=== PATIENT | male | born 1990 | race Caucasian/White ===

== ENCOUNTER 2017-05-24 10:40 | Inpatient (IN) | payer OTHER ==
[2017-05-24 11:03] LABS: PLATELET COUNT 238 10^3/uL (150-400)
--- NOTE | 2017-05-24 11:03 | EDPHY ---
H & P Smoking Status: Never smoked Time Seen by Provider: 05/24/17 10:46 HPI/ROS: CHIEF COMPLAINT: M1 hold HISTORY OF PRESENT ILLNESS: 26-year-old male presents to the emergency department with the [place] [employer] on M1 hold. The patient has a history of OCD and severe insomnia and has been off of his medications for over 1 year. He states that they were not helpful and so he stopped them. He apparently left a note for his parents, whom he lives with, stating that he was going to end his life. His mother called [place] [employer] and he was found on the hill getting some food. He states that he no longer feels suicidal or homicidal. He does not know why he left a note. He states that he wrote a note months ago. He received a drug from a friend of a friend on line and had this drug in his possession. He was told that if he took the medication , it would end his life. He does not know what the drug was. He does not have a substance abuse history. He denies auditory visual hallucinations. He denies homicidal ideation. Again he does not currently feel suicidal. He has never been hospitalized for mental illness. REVIEW OF SYSTEMS: Constitutional: No fever, no chills. Eyes: No double or blurry vision. ENT: No sore throat. Respiratory: No cough, no shortness of breath. Cardiac: No chest pain. Gastrointestinal: No abdominal pain, vomiting or diarrhea. Genitourinary: No dysuria. Musculoskeletal: No neck or back pain. Skin: No rashes. Neurological: No headache. (Sarahi Najera) Past Medical/Surgical History: OCD, insomnia (Sarahi Najera) Social History: Graduate from [employer] in 2013 with a degree in Sociology. Currently unemployed living with his parents in [place] (Sarahi Najera) Physical Exam: General Appearance: Alert, no distress. Eyes: Pupils equal and round. Extraocular motions are all intact. ENT: Mouth: Mucous membranes moist. Respiratory: No wheezing, rhonchi, or rales, lungs are clear to auscultation. Cardiovascular: Regular rate and rhythm. Gastrointestinal: Abdomen is soft and nontender, no masses, no rebound or guarding, bowel sounds normal. Neurological: Alert and oriented x 3, cranial nerves II through XII grossly intact Skin: Warm and dry, no rashes. Musculoskeletal: Nontender to palpate along the cervical, thoracic or lumbar spine. Neck is supple. Extremities: Full range of motion and no peripheral edema. Psychiatric: Patient is oriented X 3, there is no agitation. (Sarahi Najera) Constitutional: Initial Vital Signs Temperature (C) 36.6 C 05/24/17 10:54 Heart Rate 136 H 05/24/17 10:54 Respiratory Rate 18 05/24/17 10:54 Blood Pressure 135/94 H 05/24/17 10:54 O2 Sat (%) 94 05/24/17 10:54 O2 Delivery Mode Room Air Allergies/Adverse Reactions: No Known Allergies Allergy (Unverified 07/09/09 15:54) Home Medications: Medication Instructions Recorded Cholecalciferol Vit D3 [Vitamin D3 1,000 units PO DAILY 05/24/17 (*)] Multivitamins [Multivitamin (*)] 1 each PO DAILY 05/24/17 Medical Decision Making ED Course/Re-evaluation: The police found the medication that the patient had which was phenobarbital. He did not take any this medication. They are not opened. The patient has been medically cleared and was evaluated by mental health. He was kept on M1 hold and was admitted to behavioral health unit. (Sarahi Najera ) I did not see this patient while he was in the emergency department. However his care was discussed with the PA while the patient was in the department. I agree with treatment plan and management (Neel Waldron) Differential Diagnosis: Depression including functional and major depression, situational depression, medication side effect, drugs and alcohol abuse. (Sarahi Najera) - Data Points Laboratory Results: Laboratory Results 05/24/17 10:45 05/24/17 10:45 Departure - Departure Disposition: [facility] IP Clinical Impression: Suicidal ideation Condition: Fair
[2017-05-24] MEDS ORDERED: MAGNESIUM HYDROXIDE 30 ML UDCUP PO PRN (20:34)
[2017-05-24] MEDS ORDERED: ACETAMINOPHEN 325 MG TAB PO PRN (20:34)
[2017-05-24] MEDS ORDERED: LORazepam 0.5 MG TAB PO PRN (20:34)
[2017-05-24] MEDS ORDERED: NICOTINE POLACRILEX 2 MG GUM B PRN (20:34)
[2017-05-24] MEDS ORDERED: MAG HYDROX/AL HYDROX/SIMETH 30 ML UDCUP PO PRN (20:34)
[2017-05-25] MEDS ORDERED: OLANZapine DISINTEGR 5 MG TAB PO PRN (01:50)
--- NOTE | 2017-05-25 09:20 | GHP ---
[f rep st] HISTORY AND PHYSICAL DATE OF ADMISSION: 05/25/2017 CHIEF COMPLAINT: Suicidal ideation. HISTORY OF PRESENT ILLNESS: A 26-year-old male with a history of major depression, OCD, and severe i nsomnia who has been off his medications for over a year. Patient left a note for his parents, whom he lives with, stating he intended to end his life. Parents called [employer] for evaluation. U pérez my interview and Behavioral Health, patient is denying any vision changes, headaches, dysphagia, rhinorrhea, palpitations, chest pain, shortness of breath, cough, abdominal discomfort, nausea, vomit ing, changes in his bowel habits, dysuria, hematuria, arthralgias, myalgias, lower extremity edema, o r rashes. Patient reports he is tolerating p.o. intake without complication. Denies any recent weig ht loss or weight gain. PAST MEDICAL HISTORY: 1. OCD. 2. Severe insomnia. 3. Depression. SOCIAL HISTORY: Negative for tobacco, illicit drugs, or marijuana. FAMILY HISTORY: Positive for asthma in his father. REVIEW OF SYSTEMS: 10-point review of systems is negative with the exception of that reported in the HPI. PHYSICAL EXAMINATION: VITAL SIGNS: Blood pressure 110/55, heart rate 105, respiratory rate 14, 95% on room air, 36.2. GENERAL: This is a pleasant-appearing young male in no acute distress. HEENT: Notable for moist mucous membranes. EYES: Negative for any icterus. CARDIAC: Patient is regular r ate and rhythm. PULMONARY: Clear to auscultation bilaterally. GASTROINTESTINAL: Positive bowel so unds. ABDOMEN: Soft and nontender. MUSCULOSKELETAL: Negative for any lower extremity edema. SKIN : Negative for any rashes. NEUROLOGIC: He is alert and oriented x3. PSYCHIATRIC: He has a flat a ffect. Appears depressed on my examination. DATA: White count 7.4, hematocrit 51.8, platelet count of 238. Sodium 143, creatinine 0.8, blood gl ucose 127. Urine toxicology is negative. TSH is 3.07. ASSESSMENT AND PLAN: This is a 26-year-old male presenting with suicidal ideation, severe insomnia, and obsessive-compulsive disorder. 1. Mild dehydration. Patient does seem concentrated on his labs. Discussed importance of good flui d intake during his acute stay at [facility]. No need to repeat labs. Simply encouraged hafsa ent for adequate oral nourishment and hydration. 2. Acute suicidal ideation. We will leave the management to the primary psychiatric team. 3. Tachycardia. On exam, it sounds sinus. Suspect this is likely more related to his psychiatric p resentation as it seems to be fluctuating overnight. Again, have encouraged him to take good fluid i ntake and can follow his vital signs going forward. 4. Prophylaxis. Patient is ambulating. DISPOSITION: Will be dependent on the patient's psychiatric team. I have discussed the case with the upholstery auto trimmer. Will encourage good oral intake and monitor the p atient's vitals going forward. /[id number]/MODL
--- NOTE | 2017-05-25 23:32 | SOAPPROG ---
SOAP Progress Note Assessment/Plan: Late entry for 05/24/170: Assessment: 26yo CM with hx of OCD and depression admitted with SI and plan to ingest a pill he purchased online thinking it would end his life. Left note for parents who called 911. Med cleared in ER, and admitted in evening of 05/24 to 3[facility] on M-1 for further eval , stabilization and safety. Reviewed paperwork and case briefly with [facility] and d/ w staff. On brief interview, pt calm, cooperative, good eye contact, nml vol speech, decr prosidy, somewhat blunted affect, mood "okay now", denied feeling suicidal. Stated he could maintain safety on unit. Complains primarily of years of insomnia. Regardless, does not want any medication, even prn. Hx of SSRIs and psychiatric treatment for years, but has been out of treatment. Denied any AH/VH, no thoughts to harm others. Expresses wanting help for insomnia but rejecting any offered options. Does not feel he needs to be in hospital. Informed he would be provided with prn medications and fully interviewed in AM. Plan: cont M-1 safety precautions, SP-1 PRN Lorazepam and low dose Zyprexa available for anxiety/sleep/thoughts psych admission interview in AM with dictation to follow Objective: Vital Signs Temp Pulse Resp BP Pulse Ox 36.3 C 73 14 110/55 L 96 05/25/17 06:00 05/25/17 06:00 05/25/17 06:00 05/25/17 06:00 05/25/17 06:00 - Time Spent With Patient Time Spent With Patient: 15min - Pending Discharge Pending Discharge Within 24 Hours: No Pending Discharge Within 48 Hours: No ICD10 Worksheet Patient Problems: Problems Problem Status Onset Major depressive disorder, recurrent episode with mixed features Acute Obsessive compulsive disorder Acute Suicidal ideation Acute
[2017-05-26] MEDS: MULTIVITAMINS 1 EACH TAB PO SCH (14:10)
[2017-05-26] MEDS: CHOLECALCIFEROL VIT D3 1,000 UNITS TAB PO SCH (14:10)
--- NOTE | 2017-05-26 14:59 | SOAPPROG ---
SOAP Progress Note Assessment/Plan: Assessment: Major Depressive Disorder, Recurrent severe without psychotic features Obsessive Compulsive Disorder R/O MDD with psychotic feature R/O MDD with mixed/bipolar features Patient has a prior history of OCD and MDD; now on inpatient after writing suicide note and ordering phenobarbitol on-line. Patient has odd affect incongruent with report of severe emotional distress. Patient reports severe insomnia not observed overnight on unit but reported by father; patient may have mood instability. Patient reports no benefit from 3 prior SSRI trials. Plan: Short Term Certification, patient doesn't agree to voluntary treatment Start Zoloft 25mg PO QHS. [facility] handout on Zoloft reviewed. Start Seroquel 25mg PO QHS. BRENNON handout reviewed. Discussed risk of metabolic syndrome and tardive dyskinesia. Check Lipids, HgbA1c, LFTs Patient signed CLARI for parents. Reviewed plan on phone with father. Monitor mood, sleep, risk of self-harm SP1 05/26/17 15:12 Subjective: CC: "I feel better" Patient is a poor historian but reports not taking psychiatric medications for one year. Reports past diagnoses OCD and depression. Reports intrusive thoughts of graphic violence and counting starting around age 18 or 19. Reports no benefit from past trials of Citalopram, Luvox, Prozac in the past. Reports in past months having severe insomnia with disrupted sleep. Reports sometimes feeling well and stable. Sometimes feeling anxious, depressed, hopeless, and having thoughts of suicide. Reports he wrote a suicide note but then left the house and later felt better. Reports months ago overdosing medication and ordered phenobarbitol. Reports no AH or paranoia. Denies feeling agitation or severely irritable. Endorses anxiety and inability to work or function in the community. Reports feeling 'constant emotional anguish. ' Objective: Vital Signs Temp Pulse Resp BP Pulse Ox 36.3 C 88 14 96/55 L 95 05/25/17 06:00 05/26/17 06:00 05/26/17 06:00 05/26/17 06:00 05/26/17 06:00 Alert WM. Speech RRR. Mood 'a little better.' Affect odd, preoccupied, distracted. Thoughts briefly organized. Illogical at times. Denies SI or HI or AH or paranoia. Endorses intrusive thoughts. Memory limited. Possible somatic preoccupation and intrusive thoughts. Insight limited. Staff report patient slept 8 hours. Father reports have erratic sleeping patterns. Some nights only sleeping a few hours. Patient has been isolative, quiet, reporting intrusive thoughts. Father reports patient is distracted and preoccupied. Father reports 'he is in total mental anguish and he is a prisoner.' - Time Spent With Patient Time Spent With Patient: 45 minutes - Pending Discharge Pending Discharge Within 24 Hours: No Pending Discharge Within 48 Hours: No ICD10 Worksheet Patient Problems: Problems Problem Status Onset Obsessive compulsive disorder Acute Major depressive disorder, recurrent episode with mixed features Acute Suicidal ideation Acute
--- NOTE | 2017-05-26 15:01 | BAPA ---
[f rep st] ADMISSION PSYCHIATRIC ASSESSMENT DATE OF SERVICE: 05/25/2017 CHIEF COMPLAINT: As per [facility] records on ER evaluation, "I left a note for my parents saying I intended to end my life and then left the house; they called the police." [place] was [place] at , [address] [place] [address]. On evaluation, patient reports his understanding for reason for admission is "yesterday morning, I left a note for my parents indicating I was going to end my life and had the means to do so...I left in the morning with the expectation to wander around and see how the day goes..." States he had been struggling with SI "due to my ongoing chronically dire health situation and mood fluctuations daily". HISTORY OF PRESENT ILLNESS: The patient is a 26-year-old single male brought in by police on an M1 hold placed 05/24/2017 at 9:25 a.m. for suicidal ideation. He was brought to the [facility] ED for evaluation. Police had received a call from patient's father after father found a note in the morning of admission , stating his son had left, and note clearly stated his intention was to end his life. The patient has a history of severe insomnia and mental health illness since age 19 upon starting college. He reported developing insomnia, anxiety, intrusive thoughts, and was eventually diagnosed with obsessive- compulsive disorder. He tolerated living at in a dormitory for 1 semester, then returned to live at home, where he has lived since that time. He was able to graduate from , but he has never had any employment. Patient reports a history of feeling normal, no mental health issues until his senior year in high school, when he developed depression and anxiety, passing out during graduation when he was supposed to give a speech. Thereafter, he struggled with much anxiety, stating he had "stupid worries" and difficulty in social situations. He does describe his mental health difficulties as sudden onset and having dramatically changed the course in his life, but described himself as "still operational," able to function in school and complete his studies. He divides his mental health history as "[place] years" and "post- college years", having received very regular therapy and medications (SSRIs) during his time in college. He states 1 month into his freshman year of college , he started experiencing intrusive ego-dystonic thoughts, did seek therapy and attend regularly and had medications prescribed by a nurse practitioner. Medications included a trial of Prozac, as well as Celexa. Later, "post college" years included seeking psychiatric treatment from Dr. Moises Leal and psychologist, Caryn Sesay, stating he was diagnosed with OCD and major depressive disorder. Feels prior to this he was probably just diagnosed with generalized anxiety. At this time, he received Luvox, "maximum dose," with no effect. Throughout this whole time, he reports chronic insomnia , having tried a variety of medications for just 1 day with no effect. He reports even being referred to a sleep clinic, but no workup was done because they told him he did not meet criteria for sleep apnea. Patient additionally describes having "physical dysfunction" concurrent with his OCD/anxiety symptoms, which he "never told anyone about." This includes a "burning sensation on my back, like a sunburn" whenever he reclines to rest or try to sleep, and this also interferes with sleep. He also describes numbness and tingling in his hands and feet, which are also chronic. Additionally has self-diagnosed himself with "Peyronie's Disease". Although, he states he has not really discussed these physical symptoms with anyone previously, he did allude to such symptoms being generally attributed to his anxiety, whether that was by a clinician suggestion or based on his own research is unclear. Patient does state he has researched his symptoms and disorder and diagnosis, as well as medication options extensively over the years. Regarding insomnia, states when trying to sleep, not only does he experience the burning sensation on his back, but he describes "random bouncing thoughts like a pinball, nonsensical, irrational," which are intrusive and frustrating, interfering with his attempt to sleep. He does express insight into having a mental illness and frequently states he has "learned better how to deal with my thoughts," so tends to be more accepting of them; however, he admits he is no longer engaged in any outpatient treatment or therapy. Describes his condition as dealing with "years of agony," with suicidal ideation not only being a part of his initial ego-dystonic intrusive thoughts, and "part of the vortex," but increasingly, his suicidal ideation is "cumulative", admitting that several months ago he researched methods of killing himself, particularly searching for a medication he could take which would allow him to . Apparently, he located someone anonymously online who agreed to provide a medication for him. He purchased this and has kept this as an option for several months. He is unable to state why in particular he decided to leave the suicide note now with plan to take the pill. He was vague, stating he just was not sure and was going to "see how the day went." The patient reports the pill was confiscated by police and identified as phenobarbital. The patient did believe that taking this 1 pill was going to end his life. Patient does talk of his years of intrusive thoughts, which are distracting to him and quite distressing. He states since age 19, "I've never felt normal, not even a brief reprieve." He expresses symptoms of depression, feeling hopeless, helpless, worthless, chronic suicidal ideation, increasing "as the years go on," not only as "part of the vortex," but now more considered as a true option. Mood is depressed. Appetite is fair, although he admits eating less well recently. He also experiences anhedonia and is isolated, with little social connection anywhere. Regarding any history of manic symptoms, he states he experienced "euphoria for 10 minutes" after taking 1 Celexa pill during a time he was not prescribed this, but still had it from an old prescription. He does describe his mood "fluctuating," stating he feels "fine on the surface temporarily," but then predominantly depressed and otherwise "never good." He reports predominantly staying in a very depressed state. Racing thoughts do occur at night, otherwise feels thoughts are "numb during the day, my brain feels fried, like it's been on a stove." He adds, "I have to deny the reality of my situation" because if he thinks about this, he feels even more despondent. The patient denied any history of panic attacks or otherwise feeling generally anxious, except as described earlier during onset of symptoms many years ago. Patient admits that Dr. Leal did give mention to him other options to consider, perhaps likely in conjunction with Luvox, including "Zyprexa and Seroquel, but he told me to research it, which I did, and I don't want to take any of those medications." He feels that, based on his research, side effects would outweigh any potential benefits but is not able to further rationalize this as he describes not being able to feel any worse. ER evaluation and hospitalist assessment on admission to [address] [place] [address] notes no significant lab abnormalities, with TSH 3.07. Urine toxicology negative, noted to be mildly dehydrated, and good oral fluid intake was recommended, as well as adequate oral nourishment. Also noted to have mild tachycardia, to be followed while hospitalized, suspected due to his psychiatric presentation. PAST PSYCHIATRIC HISTORY: No previous inpatient psychiatric treatment. Patient 's medications have been as noted above, including trials of Celexa, Prozac, and Lexapro. Otherwise, has never had any other psychiatric medication trials for mood stabilization or antipsychotics. He does report trying once a Valium for sleep, and Ambien for sleep another time, [id number] medications, but has found nothing effective for his insomnia. No current therapist or psychiatrist in the community. Has reportedly engaged with therapy at [facility] during college years with nurse practitioner prescribing medication and about 6 months of post-college psychiatric treatment with therapist and psychiatrist as noted above. Also, per records, the patient denied any history of physical, emotional, or sexual abuse. SUBSTANCE USE HISTORY: Patient denies any substance use history, although has occasionally drank some alcohol long ago. No marijuana use or illicit substance use. PAST MEDICAL HISTORY: Unremarkable. Describes burning sensation on his back when reclines, also numbness/tingling in hands and feet. States he has seen a neurologist in the past with a negative MRI. No further details. He denied any past surgeries, nor any history of traumatic brain injury or other head trauma. CURRENT MEDICATIONS: None. ALLERGIES: No known drug allergies. FAMILY PSYCHIATRIC HISTORY: Patient denied substance use or mental illness in any family members. On [facility] evaluation, wine cellar worker spoke with Father and indicated Father deemed depressed, remains at home and spends all of his free time with his son (the patient). Medically, Father suffers from asthma and uses an inhaler. SOCIAL HISTORY: No notable significant developmental issues during childhood, reportedly normal childhood, did well in school, had friends until high school when patient became more isolated and withdrawn. He did graduate from high school, attended , living on campus only for 1 semester, and has been living at home ever since. He graduated with a major in sociology, but has never had any career or employment in this field. He apparently has never been employed. He currently lives with his parents in [place]. He is an only child. [facility] report described family is very "close-knit." Also, concerns that the family was "enmeshed." The patient is single. No children. Reported heterosexual, no close friends at this time. No legal issues, no identified lutheran or spiritual beliefs. Per [facility] report, patient in leisure time uses computer and watches TV "but does not really derive any pleasure from anything." Apparently , [facility] did interview mother and father of patient, and father was reportedly quite tearful and hopeless throughout interview with [facility] and felt unable to visit with the patient, but mother did visit with patient. MENTAL STATUS EXAM: On admission, patient was casually dressed, neatly kempt, with calm demeanor, normal psychomotor activity, good eye contact, normal speech rate and volume, although with some mild restriction in prosody. Mood was described as depressed but does not feel he is as bad as when he was admitted, maintaining he has been dealing with this all of his life and would really just like to focus on returning home. Affect was quite flat and restricted. Patient admitted to having random, intrusive, nonsensical and irrational thoughts, most prominent at night before sleep but denies any associated compulsive behaviors. He did perseverate on this being his baseline, not seeing any problem with how he has been trying to deal with his intrusive thoughts, just ignoring them or accepting them (although several times described how thoughts are very distracting, disturbing, and causing him "agony "). He minimized precipitants to admission, stating he no longer has any plan or intent to harm himself and that his current suicidal thoughts (which he admits are chronic and present often) are just part of his "vortex" of symptoms and disturbing thoughts that he has just learned to deal with. He denies any plan or intent to harm himself on the unit, and now with the pill confiscated, denies any imminent plan to harm himself if not in the hospital setting. He denied any thoughts of harm to others. He denied any current auditory or visual hallucinations. Did not appear responding to any internal stimuli. Thought processes were generally with linear responses to questions, however, vague. However, thought processes became notably more illogical, and it was felt patient was difficult to reason or rationalize with when discussing any psychiatric treatment or medication options, despite his describing feeling emotionally tormented. He asked if his father could join interview tomorrow, but denied that he would change his mind about medications, even if family supported this. Insight was impaired. Judgment poor. Cognition was conversationally intact. ASSESSMENT: A 26-year-old male with a history of being diagnosed with obsessive -compulsive disorder, also depression and chronic insomnia with a gradual progressive decline in functioning since onset of symptoms at age 19. He demonstrates no insight into need for medication, nor into the significant concerning behavior leading to his hospitalization. He is attempting to minimize precipitants to hospitalization and current symptoms with a desire to be discharged home. He has clearly been struggling chronically with suicidal ideation. Initially seems these may have been ego-dystonic and part of his "vortex" of irrational, illogical thoughts; however, suicidal ideation has seemed to become more prominent as he has been now with means and a plan over the last several months, also with significant increasing depressive symptoms over the years, and having convinced himself that his life will never be better , and will continue in this "agony" with hopelessness for the future. DIAGNOSIS: Unspecified psychotic disorder, rule out schizophrenia, rule out major depressive disorder with psychotic features, rule out bipolar mood disorder with psychotic, mixed, with psychotic features, history of obsessive- compulsive disorder. No history of illicit substance use. Social isolation. Unemployed. No history of independent living. PLAN: 1. Admit to [facility]. Routine safety precautions. No indication for assault precautions. Place on suicide precautions, SP-1. Patient does feel he can maintain safety on the unit. 2. Encourage participation and attendance in therapeutic milieu, group therapies. 3. Obtain collateral from [facility] therapist and prescriber, also possible most recent outpatient psychiatrist, Dr. Moises Leal and outpatient therapist, as noted above. Also, patient does agree to have family involved in his treatment planning, more specifically his father, states his father "knows more" about what is going on with him. It would be interesting to explore family dynamics in the home, and even if any other collateral available per extended family members, this could be beneficial. 4. Patient refuses offer of any medications, even for insomnia. Maintains he has tried several, and nothing worked. Also, extensive education was attempted regarding current distressing symptoms he identifies, and the lack of treatment and significant negative impact on his life and functioning and even, as noted, safety. Patient was adamant against taking any medication offered even on a trial basis as p.r.n. Will still leave p.r.n. lorazepam for anxiety/insomnia, also availability of p.r.n. Zyprexa for thought disorder/insomnia/mood. 5. As noted, continue on M1. Patient very focused on wanting to leave and not being acutely suicidal, but with no insight into need for treatment in an inpatient setting, or even outpatient. Reasoning and thought processes are illogical around this. 6. Patient reports history of having seen a neurologist with negative MRI. Will need to follow up on this. Perhaps family has more information. Patient does describe peripheral neuropathy symptoms, may be more amenable to treatment with medications which could lessen this distressing component. Unclear if there is any element of somatic delusions regarding his symptoms, however. Would consider neurology consult, although they will likely recommend followup on an outpatient basis. Could add vitamin B12, folate, TSH, and other labs as indicated. 7. As noted per hospitalist note, follow up on hydration, mild tachycardia, also would consider informally monitoring oral intake as indicated. /[id number]/MODL MTDD
[2017-05-26] MEDS ORDERED: QUEtiapine FUMARATE 25 MG TAB PO PRN (15:22)
[2017-05-26] MEDS ORDERED: GABAPENTIN 300 MG CAP PO PRN (15:23)
[2017-05-26] MEDS: QUEtiapine FUMARATE 25 MG TAB PO SCH (20:59)
[2017-05-26] MEDS ORDERED: SERTRALINE HCL 25 MG TAB PO SCH (21:00)
[2017-05-27] MEDS: MULTIVITAMINS 1 EACH TAB PO SCH (09:00)
[2017-05-27] MEDS: CHOLECALCIFEROL VIT D3 1,000 UNITS TAB PO SCH (09:00)
[2017-05-27] MEDS ORDERED: SERTRALINE HCL 25 MG TAB PO SCH (10:32)
--- NOTE | 2017-05-27 10:44 | SOAPPROG ---
SOAP Progress Note Assessment/Plan: Assessment: Major Depressive Disorder, Recurrent severe without psychotic features Obsessive Compulsive Disorder R/O MDD with psychotic feature R/O MDD with mixed/bipolar features Schizoid/Schizotypal traits Patient has a prior history of OCD and MDD; now on inpatient after writing suicide note. Patient reports no benefit from 3 prior SSRI trials. Pateint reports improved sleep and improved mood and denies SI. Patient appears less anxious and more euthymic. Patient had severe nausea and diarrhea last night possibly due to sertraline. Patient had nocturnal dizziness with standing possibly due to Seroquel. Plan: Short Term Certification Reduce Zoloft 12.5mg PO QHS. Monitor GI side effects. Continue Seroquel 25mg PO QHS. Discussed risk of orthostatic hypotension and syncope. Monitor mood, sleep, risk of self-harm Possible discharge tomorrow if completing safety plan and continuing to appear improved. 05/27/17 10:45 Subjective: CC: "I feel better" Patient reports last night 1-2 hours after taking medication had severe nausea and diarrhea. [place] light headed and dizzy when getting up in middle of the night. Reports eventually sleeping 9 hours and feels more rested. Reports reduced anxiety and reduced intrusive thoughts. Denies feeling agitated or irritable. Reports feeling more hopeful and denies thoughts of or suicide. Reports good visit with parents last night. Reports wanting to live for them. Denies feeling tired currently. Ate entire breakfast. Denies crying or feeling agitated. Unable to identify intermodal customer service goals involving other people. Reports no close friends or interest in making new friends but reports getting along well with parents. Objective: Vital Signs Temp Pulse Resp BP Pulse Ox 36.3 C 80 15 107/57 L 93 05/27/17 06:00 05/27/17 06:00 05/27/17 06:00 05/27/17 06:00 05/27/17 06:00 Alert WM ambulatory without tremors. Speech RRR. Mood 'better' affect mildly anxious at times, less anxious then yesterday, brief smiling. Thoughts organized. Denies SI or HI or AH or paranoia. Insight fair. Judgment appropriate. Staff report patient 9 hours, eating meals, attending groups, appearing anxious and distracted at times but calm and denying SI. HgbA1c, LFTs, TSH B12 WNL LDL 116 - not fasting - Time Spent With Patient Time Spent With Patient: 25 minutes - Pending Discharge Pending Discharge Within 24 Hours: Yes Pending Discharge Date: 05/28/17 Pending Discharge Time: 11:00 ICD10 Worksheet Patient Problems: Problems Problem Status Onset Major depressive disorder, recurrent episode with mixed features Acute Obsessive compulsive disorder Acute Suicidal ideation Acute
[2017-05-27] MEDS: QUEtiapine FUMARATE 25 MG TAB PO SCH (20:41)
[2017-05-28 06:55] VITALS: BP 99/55
[2017-05-28] MEDS: MULTIVITAMINS 1 EACH TAB PO SCH (09:01)
[2017-05-28] MEDS: CHOLECALCIFEROL VIT D3 1,000 UNITS TAB PO SCH (09:01)
--- NOTE | 2017-05-28 18:36 | BDS ---
[f rep st] BEHAVIORAL HEALTH DISCHARGE SUMMARY IDENTIFICATION: This is a 26-year-old single white male who is unemployed and lives with his parents here in [place]. The patient has a prior history of obsessive-compulsive disorder and depression diagnoses. He is a college graduate. He was not in any active outpatient mental health treatment prior to admission. REASON FOR ADMISSION: Please see initial psychiatric evaluation by Dr. Lora. The patient apparently had left a suicide note at home and then left the house. Later, he was found at a restaurant eating lunch. He was taken to the emergency room due to concerns about suicidality. He apparently had also had intermittent suicidal ideation for 1-2 months and had ordered phenobarbital on the Internet as a mechanism for overdose through the Internet. The patient reported ordering this medication 2-3 weeks prior to admission, admitted to writing the suicide note but denied further suicidal ideation in the emergency department. The patient denied alcohol, nicotine, or substance abuse prior to admission. HOSPITAL COURSE: The patient was admitted on an M1 hold and then placed on a short-term certification as he did not want voluntary treatment. The patient reported a history of obsessive-compulsive disorder starting approximately age 18. This included recurrent intrusive thoughts of him committing violent crimes , fear of losing control, repetitive thoughts about somatic symptoms, fear of somatic disease, and feeling anxious and depressed. The patient had apparently been on multiple SSRI trials in the past, including Celexa, Lexapro, Luvox and Prozac without clear benefit. The patient had been in outpatient mental health treatment at [facility] and with Dr. Leal in the past, but had not been getting mental treatment for about a year. On the unit, the patient reported anxiety, depression, severe sleep disturbance , and recurrent intrusive thoughts of numerous different topics. He had repetitive fears of the meanings of somatic sensations and repetitive fears of side effects from psychiatric medications. The patient denied further suicidal ideation on the inpatient unit. He denied violent thoughts, but had a history of approximately 8 years of having internal fears in his mind that he would lose control and hurt someone else and act out violently. He had no history of violence toward others and no access to a gun. The patient denied hallucinations or paranoia, but he had extreme worry about somatic sensations. The patient's parents reported the patient had severe sleep disturbance with reduced sleep, would intermittently appear agitated and somewhat disorganized at times. The patient was given information about the risks and benefits of starting either olanzapine or Seroquel for sleep and as an augmentation for antidepressant as he appeared to be having severe insomnia with intermittent agitation and some brief intense mood instability, along with failure to respond to at least 3 antidepressants previously. The patient was agreeable to start Seroquel, as well as sertraline for depression and OCD. The patient was started on 25 mg of sertraline and 25 mg of Seroquel at bedtime. The patient had severe nausea and diarrhea, so the sertraline dose was reduced to 12.5. The patient tolerated the Seroquel 25 mg at night. He may have had some mild orthostatic hypotension, but did not have any syncope or falls. The patient reported improvement in his anxiety and a reduction in the intensity and frequency of his somatic fears and a reduction in intrusive thoughts. He also reported feeling less dysphoric and less scattered with his thinking. His sleep was much improved. He also came across as being more organized and appropriate. On the unit, the patient was calm, did not appear to be in severe emotional distress, was eating well and attending groups without problems prior to discharge. Prior to discharge, the patient was able to complete a safety plan , denied any plans to harm himself or others, and was agreeable to outpatient mental health followup. CONDITION ON DISCHARGE: He is an alert white male in no acute distress. He is ambulatory, cooperative and pleasant. He, at times, appears briefly internally preoccupied. His speech is regular rate and rhythm. His thoughts are organized but with limited detail. His mood is "better." His affect is euthymic and reactive, but somewhat preoccupied at times. He denies violent or suicidal thoughts, hallucinations or paranoia. His memory is fair. His insight is limited. His judgment is appropriate regarding the need for continued treatment. LAB RESULTS: Include sodium 143, potassium 4.1, creatinine 0.8, glucose 127, which was not fasting. Hemoglobin A1c 5.4, AST 23, ALT 34, B12 558. TSH 2.7. The patient's lipid panel was not fasting, with an LDL of 116, HDL 44, triglycerides 86. His urine tox screen was negative. His white blood cell count was 7.4, hemoglobin 17.7, platelet count 238. Metabolic screening: The patient was counseled about the risks of Seroquel causing weight gain, diabetes, hyperlipidemia, and tardive dyskinesia. He was counseled to eat a low-sugar and low-fat diet and to have his primary care provider recheck his hemoglobin A1c and lipid panel in 4-6 weeks. ADVANCE DIRECTIVES: Patient did not have advance directives. He lives with his parents, who are his next of kin. DISCHARGE DIAGNOSES: Major depressive disorder, recurrent, severe, with mixed features (severe insomnia, mood instability) Obsessive-compulsive disorder. 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 DISCHARGE MEDICATIONS: Seroquel 25 mg p.o. q.h.s. and sertraline 12.5 mg p.o. q.h.s. FOLLOWUP: The patient has an appointment next week with his primary care provider, Dr. Fleming, at [facility]. The patient was also given a referral to outpatient psychotherapy and list of outpatient psychiatrists for follow-up. DISPOSITION: The patient is leaving the unit with his parents, who will monitor his medication compliance and assist him in getting followup treatment after discharge. LEGAL STATUS: He was admitted on an M1 hold and placed on short-term certification. This will be terminated upon discharge. ADDENDUM: The patient was given a copy of his blood work to take to his primary care provider. /[id number]/MODL MTDD
== END 2017-05-28 13:21 | disposition home or self-care (01) | DRG 885 ==
LOC: EEVIPCON 10:40 → BBEH 17:00
PROVIDERS: ADMIT Psychiatry & Neurology Behavioral Neurology & Neuropsychiatry; ATTEND Psychiatry & Neurology Behavioral Neurology & Neuropsychiatry
DX: F33.3 Major depressive disorder, recurrent, severe with psychotic symptoms (principal); G47.00 Insomnia, unspecified; F60.3 Borderline personality disorder; F42.9 Obsessive-compulsive disorder, unspecified; F21 Schizotypal disorder; F84.5 Asperger's syndrome; E86.0 Dehydration; T43.506A Underdosing of unspecified antipsychotics and neuroleptics, initial encounter
CPT/HCPCS: 80305; 82607-90; G0480